=== PATIENT | female | born 1955 | race Hispanic/Latino ===

== ENCOUNTER → 2019-04-17 | Outpatient (CLI) | payer OTHER ==
[~2019-04-17] MED LIST: ATENOLOL25 MG PO; LEXAPRO10 MG PO
--- NOTE | 2019-04-17 13:18 | Diagnostic Imaging Report ---
Left Wrist MRI without contrast. History: Wrist pain. Strain. Fall. Comparison: None Technique: Coronal PD FS and PD. Axial PD FS. Sagital PD FS. 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 Degeneration and scarring of the lunotriquetral ligament. Degeneration and fraying involving the ulnar styloid fibers of the triangular fibrocartilage complex. Distal radial ulnar joint effusion and synovitis. There is neutral ulnar variance. No osteochondral lesion. No acute fracture, osteonecrosis or dislocation. No stress related bone marrow edema. Mild scattered degenerative change. The extensor tendons are intact. The flexor tendons are intact. Signal intensity within the median nerve is normal. No ganglion cyst. There is normal alignment of the wrist. Mild dorsal capsular scarring and synovitis. Impression: Degeneration and fraying involving the ulnar styloid fibers of the triangle fibrocartilage complex. No tear or retraction. There is a distal radial ulnar joint effusion and synovitis. Mild dorsal capsular scarring and synovitis. No acute fracture, subluxation or avascular necrosis. Signed by: Dr. Ilia Ozuna M.D. on 04/17/2019 1:15 PM
== END ==
LOC: MRI 09:38
PROVIDERS: ATTEND Family Medicine
DX: S66.912D Strain of unspecified muscle, fascia and tendon at wrist and hand level, left hand, subsequent encounter (principal)

== ENCOUNTER 2020-06-08 07:07 | Emergency (ER) | payer MEDICARE, OTHER ==
[~2020-06-08] VITALS: Ht 154.9 cm; Wt 86.2 kg
--- NOTE | 2020-06-08 07:23 | Emergency Department Note ---
History of Present Illnes History of Present Illness Chief Complaint: Head/Face Trauma History of Present Illness This is a 64 year old female Chief Complaint Comment TRIPPED WHILE WALKING, FELL HITTING FACE ON CONCRETE. DENIES ANY LOC. ABRASIONS TO FOREHEAD, BRIDGE OF NOSE, TIP OF NOSE, LEFT CHEEK. NO LOOSE TEETH. 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 Any updates have been documented here. Past Medical History Recent Fever: No Clinical Suspicion of Infectio: No New/Unexplained Change in Ment: No Past Medical History: Hypertension Past Surgical History: Appendectomy, Hysterectomy Other Surgery: BLADDER SUSPENSION Review of Systems Review of Systems Constitutional: Reports no symptoms EENTM: Reports as per HPI (pain to front of nose and forehead) Cardiovascular: Reports no symptoms Respiratory: Reports no symptoms Gastrointestinal: Reports no symptoms Genitourinary: Reports no symptoms Musculoskeletal: Reports no symptoms Integumentary: Reports no symptoms Neurological: Reports no symptoms Psychological: Reports no symptoms Endocrine: Reports no symptoms Hematological/Lymphatic: Reports no symptoms Physical Exam Related Data Allergies: Coded Allergies: No Known Allergies (Unverified , 06/08/20) Triage Vital Signs Vital Signs Date Time Temp Pulse Resp B/P (MAP) Pulse Ox O2 Delivery O2 Flow Rate FiO2 06/08/20 07:10 98.0 65 18 161/76 100 Room Air Vital signs reviewed: Yes Physical Exam CONSTITUTIONAL Constitutional: Present well-developed, Present well-nourished HENT HENT: Present normocephalic, Present oropharynx clear/moist, Present nose normal; Absent atraumatic (Abrasion to forehead, nasal bridge) HENT L/R: Present left ext ear normal, Present right ext ear normal EYES Eyes: Reports PERRL, Reports conjunctivae normal NECK Neck: Present ROM normal PULMONARY Pulmonary: Present effort normal, Present breath sounds normal CARDIOVASCULAR Cardiovascular: Present regular rhythm, Present heart sounds normal, Present capillary refill normal, Present normal rate GASTROINTESTINAL Abdominal: Present soft, Present nontender, Present bowel sounds normal GENITOURINARY Genitourinary: Present exam deferred SKIN Skin: Present warm, Present dry MUSCULOSKELETAL Musculoskeletal: Present ROM normal NEUROLOGICAL Neurological: Present alert, Present oriented x 3, Present no gross motor or sensory deficits; Absent cranial nerve deficit, Absent sensory deficit, Absent weakness PSYCHOLOGICAL Psychological: Present mood/affect normal, Present judgement normal Assessment & Plan Medical Decision Making MDM 64-year-old female presents for mechanical fall sustained approximately 1 hour prior to presentation. She denies loss of consciousness. She has not tried anything at home. She is not on blood thinners. Examination shows abrasions to the forehead and nasal bridge. No septal hematoma or signs of malocclusion of the jaw. CT head, C-spine, maxillofacial are all unremarkable. She is given Tylenol for pain. She was informed of her results and will follow-up with a primary care provider or return to the emergency Department no resting symptoms. Patient's appropriate discharge. Tetanus was updated. Reassessment Reassessment time: 08:44 Reassessment Well appearing, NAD Assessment & Plan Final Impression: (1) Abrasion Depart Disposition: HOME, SELF-CARE Last Vital Signs Date Time Temp Pulse Resp B/P (MAP) Pulse Ox O2 Delivery O2 Flow Rate FiO2 06/08/20 07:10 98.0 65 18 161/76 100 Room Air Home Meds Reported Medications Escitalopram Oxalate (LEXAPRO) 10 Mg Tablet, 10 MG PO DAILY 12/10/13 Atenolol (ATENOLOL) 25 Mg Tablet, 25 MG PO DAILY 12/10/13 Medications in the ED Acetaminophen 650 mg ONCE ONCE PO ; Start 06/08/20 at 07:30; Stop 06/08/20 at 07:31; Status UNV Tetanus/ Diphtheria Toxoids 0.5 ml ONCE ONCE IM ; Start 06/08/20 at 07:30; Stop 06/08/20 at 07:31 HILLARY WALLER MD Jun 08, 2020 07:23
[2020-06-08] MEDS ORDERED: ACETAMINOPHEN 325 MG TAB PO ONE (07:30)
[2020-06-08] MEDS ORDERED: TETANUS/DIPHTHERIA TOX ADULT 0.5 ML SYR IM ONE (07:30)
--- OUTSIDE RECORDS SUMMARY | 2020-06-08 08:19 | XMS REPORT | Continuity of Care Document ---
Author Author [facility] Organization [facility] Address [address] [place] [address] [place] [id number] Phone Unavailable Care Team Providers Care Phlebotomist Name Role Phone LIZA MERCER Unavailable Problems This patient has no known problems. Allergies, Adverse Reactions, Alerts This patient has no known allergies or adverse reactions. Medications This patient has no known medications. Procedures This patient has no known procedures. Results Test Description Test Time Test Comments Results Result Comments Source MRI WRIST LEFT WO 2019-04-17 13:11:00 [facility] [address] [address] Patient Name: ANURADHA CORCORAN MR #: [id number] : 1955 Age/Sex: 63/F Req #: [id number] Adm Physician: Ordered by: MERCER ANDREW DO Report #: [id number] Location: MRI Room/Bed: Procedure: [id number] MRI/MRI WRIST LEFT WO Exam Date: Exam Time: REPORT STATUS: Signed Left Wrist MRI without contrast. History: Wrist pain. Strain. Fall. Comparison: None Technique: Coronal PD FS and PD. Axial PD FS. Sagital PD FS. 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 Degeneration and scarring of the lunotriquetral ligament. Degeneration and fraying involving the ulnar styloid fibers of the triangular fibrocartilage complex. Distal radial ulnar joint effusion and synovitis. There is neutral ulnar variance. No osteochondral lesion. No acute fracture, osteonecrosis or dislocation. No stress related bone marrow edema. Mild scattered degenerative change. The extensor tendons are intact. The flexor tendons are intact. Signal intensity within the median nerve is normal. No ganglion cyst. There is normal alignment of the wrist. Mild dorsal capsular scarring and synovitis. Impression: Degeneration and fraying involving the ulnar styloid fibers of the triangle fibrocartilage complex. No tear or retraction. There is a distal ra dial ulnar joint effusion and synovitis. Mild dorsal capsular scarring and synovitis. No acute fracture, subluxation or avascular necrosis. Signed by: Dr. Ilia Ozuna M.D. on 04/17/2019 1:15 PM Dictated By: ILIA OZUNA MD, MD [id number] Transcribed By: AISLINN on 04/17/19 1315 COPY TO: LIZA MERCER DO
--- NOTE | 2020-06-08 08:30 | Diagnostic Imaging Report ---
Examination: CT BRAIN WO History:^N ^Fall, hit head ^[id number] ^[id number] Comparison studies:None Technique: Axial images were obtained from the skull base to the vertex. Coronal and sagittal images reconstructed from the axial data. Dose modulation, iterative reconstruction, and/or weight based adjustment of the mA/kV was utilized to reduce the radiation dose to as low as reasonably achievable. Intravenous contrast: None Findings: Scalp: No abnormalities. Bones: No fractures, blastic or lytic lesions. Brain sulci: Appropriate for age. Ventricles: Normal in size and configuration. No hydrocephalus. Extra-axial space: No abnormalities. Parenchyma: No abnormal densities. No masses, hemorrhage, or acute or chronic cortical based vascular insults.. Sellar/suprasellar region: No abnormalities. Craniocervical junction: Patent foramen magnum. No Chiari one malformation. Incidental findings: None. Impression: No intracranial abnormalities. Signed by: Dr. Chiquita Melo M.D. on 06/08/2020 8:27 AM
--- NOTE | 2020-06-08 08:32 | Diagnostic Imaging Report ---
Examination: CT Face without Contrast History:^N ^Fall, hit head ^[id number] ^[id number] Comparison studies: None Technique: Axial images were obtained through the maxillofacial region. Coronal and sagittal reconstructions obtained from the axial data. Dose modulation, iterative reconstruction, and/or weight based adjustment of the mA/kV was utilized to reduce the radiation dose to as low as reasonably achievable. Intravenous contrast: None Findings: Soft tissues: No abnormalities. Bones: No fractures or bony abnormalities. Orbits: Globes: Intact Extra or intraconal abnormalities: None. Paranasal sinuses: Clear. IMPRESSION: No acute facial abnormality. Signed by: Dr. Chiquita Melo M.D. on 06/08/2020 8:29 AM
--- NOTE | 2020-06-08 08:36 | Diagnostic Imaging Report ---
Examination: CT CERVICAL SPINE WO HISTORY:Neck pain. ^N ^Fall, hit head ^[id number] ^[id number] COMPARISON:None. TECHNIQUE: Multidetector helical axial images were obtained without contrast from the foramen magnum to T1. Coronal and sagittal reformatted images were done. Bone and soft tissue windows were evaluated. Dose modulation, iterative reconstruction, and/or weight based adjustment of the mA/kV was utilized to reduce the radiation dose to as low as reasonably achievable. FINDINGS: Alignment:Normal alignment and lordosis. Vertebrae: Normal height and density. No acute fracture, infection or neoplasm. Disc space heights: Normal height. Caliber of spinal canal: Developmentally normal. Posterior fossa and craniocervical junction: Foramen magnum patent. No Chiari 1 malformation. Soft tissues: No abnormality. Degenerative changes: Disc osteophyte complexes at C5-C6 and C6-C7 without canal or foraminal stenosis. Visualized lung apices: No abnormalities. IMPRESSION: No acute abnormalities. Signed by: Dr. Chiquita Melo M.D. on 06/08/2020 8:32 AM
== END 2020-06-08 08:56 | disposition home or self-care (01) ==
LOC: ER 07:10
DX: S00.81XA Abrasion of other part of head, initial encounter (principal); W18.30XA Fall on same level, unspecified, initial encounter; I10 Essential (primary) hypertension
CPT/HCPCS: 70450; 70486; 72125; 90471; 90714; 99283

== ENCOUNTER → 2025-05-19 | Outpatient (REF) | payer MEDICARE ==
[~2025-05-19] MED LIST changes: +AMIODARONE HCL200 MG PO; +ANAPROX DS550 MG PO; +BENZONATATE100 MG PO; +ELIQUIS5 MG PO; +FAMOTIDINE20 MG PO; +LOPRESSOR25 MG PO; +LORATADINE10 MG PO; +METFORMIN HCL500 MG PO; +TAMIFLU75 MG PO
== END ==
LOC: RAD 13:45
PROVIDERS: ATTEND Internal Medicine
DX: M25.561 Pain in right knee (principal); M25.562 Pain in left knee